=== PATIENT | female | born 1940 | race Caucasian/White ===

== ENCOUNTER 2022-03-12 16:35 | Inpatient (IN) | payer MEDICARE ==
[~2022-03-12] VITALS: Ht 157.5 cm; Wt 52.3 kg
[2022-03-13 00:17] LABS: RED BLOOD COUNT 3.77 M/UL (4.00-5.10)
[2022-03-13 00:37] LABS: BUN/CREATININE RATIO 30 (0-10)
[2022-03-13 11:24] LABS: HEMOGLOBIN 11.2 gm/dl (12.3-15.3); RED BLOOD COUNT 3.62 M/UL (4.00-5.10); WHITE BLOOD COUNT 10.5 K/UL (4.5-11.0)
[2022-03-13 12:00] LABS: BUN/CREATININE RATIO 31 (0-10)
[2022-03-13] MEDS ORDERED: LEVOTHYROXINE50 MCG PO (13:24)
[2022-03-13] MEDS ORDERED: ANORO ELLIPTA1 EACH INH (13:25)
[2022-03-13] MEDS ORDERED: PREDNISONE5 MG PO (13:25)
[2022-03-13] MEDS ORDERED: ELIQUIS5 MG PO (13:25)
[2022-03-13] MEDS ORDERED: PROAIR HFA8.5 GM INH (13:26)
[2022-03-13] MEDS ORDERED: FUROSEMIDE40 MG PO (13:26)
[2022-03-13] MEDS ORDERED: ESCITALOPRAM OX10 MG PO (13:26)
[2022-03-14 06:44] LABS: HEMOGLOBIN 10.7 gm/dl (12.3-15.3); RED BLOOD COUNT 3.42 M/UL (4.00-5.10); WHITE BLOOD COUNT 12.7 K/UL (4.5-11.0)
[2022-03-14 07:07] LABS: BUN/CREATININE RATIO 35 (0-10)
[2022-03-15 04:25] LABS: HEMOGLOBIN 9.3 gm/dl (12.3-15.3); RED BLOOD COUNT 2.89 M/UL (4.00-5.10)
[2022-03-15 04:54] LABS: BUN/CREATININE RATIO 33 (0-10)
[2022-03-16 03:18] LABS: HEMOGLOBIN 7.9 gm/dl (12.3-15.3); RED BLOOD COUNT 2.61 M/UL (4.00-5.10); WHITE BLOOD COUNT 12.3 K/UL (4.5-11.0)
[2022-03-16 03:42] LABS: BUN/CREATININE RATIO 37 (0-10)
[2022-03-16 16:59] LABS: HEMOGLOBIN 8.5 gm/dl (12.3-15.3)
[2022-03-17 02:58] LABS: HEMOGLOBIN 8.1 gm/dl (12.3-15.3); RED BLOOD COUNT 2.6 M/UL (4.00-5.10); WHITE BLOOD COUNT 9.4 K/UL (4.5-11.0)
[2022-03-17 03:23] LABS: BUN/CREATININE RATIO 41 (0-10)
[2022-03-18 03:20] LABS: HEMOGLOBIN 7.7 gm/dl (12.3-15.3); RED BLOOD COUNT 2.52 M/UL (4.00-5.10); WHITE BLOOD COUNT 9.3 K/UL (4.5-11.0)
[2022-03-18 03:53] LABS: BUN/CREATININE RATIO 45 (0-10)
[2022-03-19 04:02] LABS: BUN/CREATININE RATIO 36 (0-10)
[2022-03-19 04:04] LABS: HEMOGLOBIN 8.6 gm/dl (12.3-15.3)
[2022-03-19 04:05] LABS: RED BLOOD COUNT 2.84 M/UL (4.00-5.10); WHITE BLOOD COUNT 12.7 K/UL (4.5-11.0)
[2022-03-20 03:05] LABS: HEMOGLOBIN 8.8 gm/dl (12.3-15.3); RED BLOOD COUNT 2.84 M/UL (4.00-5.10); WHITE BLOOD COUNT 10.4 K/UL (4.5-11.0)
[2022-03-20 03:48] LABS: BUN/CREATININE RATIO 39 (0-10)
--- NOTE | 2022-03-21 09:36 | NUR ---
MEWS TOOLS SCORE 4 MD MADE AWARE. MD STATES WILL PUT IN NEW ORDERS. WILL CONTINUE TO MONITOR PATIENT.
[2022-03-21 10:16] LABS: HEMOGLOBIN 9.2 gm/dl (12.3-15.3); RED BLOOD COUNT 3.02 M/UL (4.00-5.10)
[2022-03-21 10:30] LABS: BUN/CREATININE RATIO 31 (0-10)
--- NOTE | 2022-03-21 13:20 | NUR ---
PT UP TO CHAIR WITH 2 ASSIST PER STAFF. NAD, RESP EVEN AND UNLABORED, 02 2LPM, FAMILY AT BEDSIDE.
--- NOTE | 2022-03-21 15:10 | NUR ---
PT ASSISTED BACK TO BEDSIDE X2 STAFF ASSIST, PT BREIF CHANGED, PT ASSISTED TO TURN. FAMILY AT BEDSIDE
--- NOTE | 2022-03-21 18:30 | NUR ---
MD NOTIFIED OF INCREASED LETHARGY AND DECREASED APPETITE. PT RESTING IN BED NAD, VSS, 02 2LPM, RESP EVEN AND UNLABORED. MD TO BEDSIDE. NO NEW ORDERS AT THIS TIME.
[2022-03-22 04:28] LABS: BUN/CREATININE RATIO 26 (0-10)
--- NOTE | 2022-03-22 10:00 | NUR ---
PT ASSISTED TO CHAIR X2 ASSIST PER PT REQUEST.NAD, TELE PULSE OX IN PLACE. BED ALARM IN PLACE.
--- NOTE | 2022-03-22 12:00 | NUR ---
DISCUSSED DECREASED INTAKE AND ASSESSMENT FINDINGS WITH . TO BEDSIDE, NAD, TELE. PULSE OX IN PLACE. RESP EVEN AND UNLABORED. PT RESTING WITH EYES CLOSED. BED ALARM IN PLACE.
[2022-03-23 03:19] LABS: HEMOGLOBIN 8.9 gm/dl (12.3-15.3); RED BLOOD COUNT 2.87 M/UL (4.00-5.10); WHITE BLOOD COUNT 11.5 K/UL (4.5-11.0)
[2022-03-23 03:54] LABS: BUN/CREATININE RATIO 33 (0-10)
[2022-03-24] MEDS ORDERED: NICOTINE PATCH1 EACH TD (09:08)
[2022-03-24] MEDS ORDERED: FAMOTIDINE20 MG PO (09:08)
[2022-03-24] MEDS ORDERED: KLOR-CON 1010 MEQ PO (09:08)
[2022-03-24] MEDS ORDERED: HYDROCODON-ACE1 EAC4 PO (09:08)
[2022-03-24] MEDS ORDERED: SYMBICORT 160-1 INHA INH (09:08)
[2022-03-24] MEDS ORDERED: DOCUSATE SODIU100 MG PO (09:08)
[2022-03-24] MEDS ORDERED: ELIQUIS 2.5 MG2.5 MG PO (09:10)
[2022-03-24] MEDS ORDERED: FERROUS SULFAT324 MG PO (09:44)
== END 2022-03-24 18:20 | DRG 480 ==
LOC: M/S 23:19
PROVIDERS: Internal Medicine; Internal Medicine Infectious Disease; Orthopaedic Surgery; Physician Assistant; ADMIT Internal Medicine
PROC: 0QS704Z Reposition Left Upper Femur with Internal Fixation Device, Open Approach (ICD-10-PCS; 2022-03-14)
PROC: B24BZZZ Ultrasonography of Heart with Aorta (ICD-10-PCS; principal; 2022-03-22)
DX: S72.142A Displaced intertrochanteric fracture of left femur, initial encounter for closed fracture (principal); I50.33 Acute on chronic diastolic (congestive) heart failure; J44.1 Chronic obstructive pulmonary disease with (acute) exacerbation; Z20.822 Contact with and (suspected) exposure to COVID-19; D62 Acute posthemorrhagic anemia; D50.9 Iron deficiency anemia, unspecified; I11.0 Hypertensive heart disease with heart failure; W01.0XXA Fall on same level from slipping, tripping and stumbling without subsequent striking against object, initial encounter; F41.9 Anxiety disorder, unspecified; E87.6 Hypokalemia; E03.9 Hypothyroidism, unspecified; I08.3 Combined rheumatic disorders of mitral, aortic and tricuspid valves; F17.210 Nicotine dependence, cigarettes, uncomplicated; F03.90 Unspecified dementia, unspecified severity, without behavioral disturbance, psychotic disturbance, mood disturbance, and anxiety; Z79.01 Long term (current) use of anticoagulants; Z86.718 Personal history of other venous thrombosis and embolism; Z99.81 Dependence on supplemental oxygen; Z88.0 Allergy status to penicillin; Z88.2 Allergy status to sulfonamides; Z88.7 Allergy status to serum and vaccine; Z86.73 Personal history of transient ischemic attack (TIA), and cerebral infarction without residual deficits
CPT/HCPCS: ECHO; 36415; 71045; 73502; 76000; 80048; 80053; 82550; 82553; 82607; 82728; 82746; 83540; 83550; 83735; 83880; 84100; 84443; 84484; 85014; 85018; 85025; 85027; 85610; 85652; 85730; 86140; 86850; 86900; 86901; 93005; 93306; 94640; 94664; 94760; 97110; 97110-GP-CQ; 97161; 97166; 97530; 97530-GP-CQ; 97535; C1713; J0690; J1100; J1120; J1756; J1940; J2001; J2270; J2405; J2704; J3010; U0002